=== PATIENT | male | born 1980 | race Caucasian/White ===

== ENCOUNTER 2022-10-03 08:46 | Emergency (ER) | payer OTHER, SELFPAY ==
[2022-10-03 08:46] VITALS: BP 206/115; PULSE 115; RESP 16; TEMP 36.4; O2SAT 94; BMI 44.4
[2022-10-03 08:52] VITALS: BMI 44.5
[2022-10-03] MEDS: predniSONE 20 MG Tablet 60 MG PO (10:04)
[2022-10-03] MEDS: Acyclovir 200 MG Capsule 400 MG PO (10:05)
[2022-10-03] MEDS: Lisinopril 20 MG Tablet PO (10:05)
[2022-10-03 10:07] VITALS: BP 149/87; PULSE 82; RESP 16; O2SAT 97
--- NOTE | 2022-10-03 16:30 | EX.ED.DYSGE1 ---
HPI History of Present Illness Chief Complaint: Neuro S/Sx Narrative Narrative: 42-year-old male presenting with facial droop x3 days. Patient denies other symptoms. He is not have any paresthesias or inability to move his arms or legs. No rashes. No headache. Patient states this is the right side of his face. He relates that he recently had something viral prior to starting the symptoms. PFSH [facility] Medical History HTN (hypertension) Home Medications acyclovir 400 mg tablet 1 tab PO 5X/DAY #35 tabs 10/03/22 [Rx Last Taken Unknown] lisinopril 20 mg tablet 20 mg PO DAILY #30 tabs 10/03/22 [Rx Last Taken Unknown] prednisone 10 mg tablet 60 mg PO DAILY 7 days #42 tabs 10/03/22 [Rx Last Taken Unknown] Allergy/AdvReac Type Severity Reaction Status Date / Time No Known Allergies Allergy Verified 10/03/22 08:48 Surgical History H/O vasectomy Social History Smoking Status: Current every day smoker tobacco type: cigarettes ROS ROS ED Constitutional Constitutional ED: Denies chills, fever(s) or sweats Eyes Eyes: Denies blurry vision or change in vision ENT ENT ED: Denies ear pain or sore throat Cardiovascular Cardiovascular: Denies chest pain, palpitations or racing heartbeat Respiratory/Chest Respiratory/Chest: Denies cough, dyspnea or sputum Gastrointestinal Gastrointestinal: Denies abdominal pain, constipation, diarrhea, nausea or vomiting Genitourinary Genitourinary ED: Denies dysuria, hematuria or urinary frequency Musculoskeletal Musculoskeletal: Denies arthralgias, myalgias or neck pain Integumentary Denies abscess, Abrasions or rash Neurologic Neurologic: Reports other Details: Right-sided facial Psychiatric Psychiatric: Denies anxiety, depression, suicidal ideation or suicidal thoughts Endocrine Endocrinology: Denies polydipsia or polyuria EXAM Physical Exam Const Vital Signs: 10/03/22 08:46 10/03/22 10:07 Temperature 97.6 F L Temperature Source Temporal Pulse Rate 115 H 82 Respiratory Rate 16 16 Blood Pressure 206/115 H 149/87 H Blood Pressure Mean 145 Pulse Ox 94 97 Oxygen Delivery Method Room Air Positive well nourished General Appearance ED: NAD; Negative for pallor HEENT Reports TM's clear and moist mucous membranes Tympanic Membrane ED: Yes TM's clear Eyes PERRL and EOMs intact bilaterally Neck no lymphadenopathy Chest Wall inspection of chest normal and palpation of chest normal Resp normal respiratory effort and clear to auscultation bilaterally Auscultation: Negative for rales, rhonchi or wheezes Cardio regular rate and regular rhythm GI normal to inspection, nondistended, normoactive bowel sounds Neuro oriented x3 Neuro Narrative: Facial droop to the right side of the face without sparing of the forehead. Sensorium / Orientation: alert Motor Exam: strength 5/5 throughout Psych mental status grossly normal Skin no rashes or lesions noted General Skin Exam: Negative for jaundice or pallor MDM MDM MDM Narrative Medical decision making narrative: Patient presenting with facial droop on the right side of his face without sparing of the forehead. Was consistent with a Figueroa's palsy. Patient's HEENT exam is otherwise normal. No skin rashes. TMs are normal. I do not believe the patient needs any blood work or imaging. Patient also has a complaint today that his blood pressures been elevated recently. He does not have a primary care physician. He states that his systolic blood pressure has been in the 170s pretty consistently. His diastolic pressure has been around 90-100 consistently. He made a appointment to follow-up with a primary care physician but cannot be seen until later this month. I will start him on a low-dose lisinopril 20 mg p.o. daily. He is also treated for his Figueroa's palsy with acyclovir and prednisone. He is to follow-up with his PCP. Return precautions discussed. Impression: 1. Hypertension 2. Figueroa's palsy Lab Data Attestation: I reviewed the patient's lab results. Discharge Plan Triage Chief Complaint: Neuro S/Sx ED Provider: Gen Rayo Dx/Rx/DC Orders Instructions: ED Figueroa's Palsy, ED Hypertension New Begin Treatment Prescriptions: New acyclovir 400 mg tablet 1 tab PO 5X/DAY Qty: 35 0RF prednisone 10 mg tablet 60 mg PO DAILY 7 Days Qty: 42 0RF lisinopril 20 mg tablet 20 mg PO DAILY Qty: 30 0RF Primary Care Provider: Care Physician,No Primary Referrals: Torsten Tinsley DO [Med Staff - Radiographer Mammographer] - 3-5 Days Care Physician,No Primary [Primary Care Provider] - Disposition Disposition: Home, Self Care Discharge Date/Time: 10/03/22 10:07
== END 2022-10-03 10:07 | disposition home or self-care (01) ==
PROVIDERS: Emergency Provider Student in an Organized Health Care Education/Training Program; Visit Provider Student in an Organized Health Care Education/Training Program
DX: G51.0 Bell's palsy (principal); I10 Essential (primary) hypertension; F17.210 Nicotine dependence, cigarettes, uncomplicated
CPT/HCPCS: 99283

== ENCOUNTER → 2023-01-25 | Outpatient (CLI) | payer OTHER, SELFPAY ==
[2023-01-25 12:23] LABS: Absolute Lymphocyte Count 3.48 X10^3/uL (0.83-4.51); Absolute Neutrophil Count 7.5 X10^3/uL (2.0-7.7); Basophil# 0.09 X10^3/uL; Basophil% 0.8 % (0-1); Eosinophil# 0.01 X10^3/uL; Eosinophils% 0.1 % (0-5); Hematocrit 50.3 % (40-54); Hemoglobin 16.7 g/dL (13.0-16.5); Lymphocyte # 3.48 X10^3/ul (0.83-4.51); Lymphocyte % 29.4 % (19-41); Mean Corp Hgb Conc 33.2 g/dL (32-36); Mean Corpuscular Hgb 29.8 pg (27.0-32.0); Mean Corpuscular Volume 89.8 fL (80-94); Mean Platelet Vol. 9.7 fl (6.2-12.0); Monocyte# 0.71 X10^3/uL; NRBC Flagged by Analyzer 0 % (0-5); Neutrophil # 7.48 X10^3/uL (2.7-7.7); Neutrophil % 63.3 % (47-70); Platelet Count 312 K/mm3 (150-450); RBC Distribution Width CV 12.9 % (11.6-14.6); RBC Distribution Width SD 42.2 fl (35.1-43.9); White Blood Count 11.8 K/mm3 (4.4-11.0)
[2023-01-25 12:56] LABS: ALB/GLOB Ratio 0.9 RATIO (0.9-2.4); AST(SGOT) 19 U/L (15-37); Alanine Aminotransfer ALT/SGPT 37 U/L (16-61); Albumin, Serum 3.7 g/dL (3.2-5.0); Alkaline Phosphatase 83 U/L (45-117); Anion Gap 3 (5-15); BUN 13 mg/dL (7-18); BUN/Creat Ratio 13.8 RATIO (10-20); Calcium,Total 8.9 mg/dL (8.5-10.1); Chloride 105 mmol/L (98-107); Cholesterol 207 mg/dL (200); Creatinine, Serum 0.94 mg/dL (0.70-1.30); EST Glomerular Filtration Rate 92 mL/min (>60); Est Glom Filt Rate - Afr Amer 112 mL/min (>60); Globulin 4.1 g/dL (2.2-4.2); Glucose 102 mg/dL (74-106); High Density Lipoprotein 42 mg/dL; Potassium 4.2 mmol/L (3.5-5.1); Protein, Total 7.8 g/dL (6.4-8.2); Sodium Level 134 mmol/L (136-145); Thyroid Stim Hormone (TSH) 0.83 uIU/mL (0.358-3.74); Triglycerides 209 mg/dL; Very Low Density Lipoprotein 42 mg/dL (5-40)
[2023-01-25 13:09] LABS: Hemoglobin A1c 5.6 % (3.8-5.6)
== END | disposition home or self-care (01) ==
LOC: BFHLAB 08:40
PROVIDERS: PCP Family Medicine; Referring Provider Family Medicine; Visit Provider Family Medicine
DX: Z00.00 Encounter for general adult medical examination without abnormal findings (principal); I10 Essential (primary) hypertension
CPT/HCPCS: 36415; 80053; 80061; 83036; 84443; 85025

== ENCOUNTER 2025-01-10 12:17 | Emergency (ER) | payer OTHER, SELFPAY ==
[2025-01-10 12:18] VITALS: BP 199/93; PULSE 119; RESP 20; TEMP 36.7; O2SAT 97; BMI 43.7
--- NOTE | 2025-01-10 12:41 | EDS_ITS ---
HPI <HARRISON Bermudez - Last Filed: 01/10/25 15:26> History of Present Illness Chief Complaint: Abscess Narrative Narrative: 44-year-old male states he has had a golf ball sized mass on the left side of his neck for 10 years. It was mobile to touch and not painful so he never had it evaluated. Over the last week it has significantly increased in size and become painful. He messaged his primary care doctor and is in the process of being referred to Dr. Tsai. The area seems more swollen and painful since last night prompting him to come in. He denies fever, chills, nausea, vomiting, or difficulty swallowing or breathing. PFSH <HARRISON Bermudez - Last Filed: 01/10/25 15:26> PFSH Medical History HTN (hypertension) Home Medications ?Medication ?Instructions ?Recorded ?Last Taken ?Type acyclovir 400 mg tablet 1 tab PO 5X/DAY #35 tabs 12/21 Unknown Rx lisinopril 20 mg tablet 20 mg PO DAILY #30 tabs 12/21 Unknown Rx prednisone 10 mg tablet 60 mg (6 x 10 mg) PO DAILY 7 days 10/03/22 Unknown Rx #42 tabs Allergy/AdvReac Type Severity Reaction Status Date / Time No Known Allergies Allergy Verified 10/03/22 08:48 Surgical History H/O vasectomy Social History Smoking Status: Current every day smoker tobacco type: cigarettes ROS <HARRISON Bermudez - Last Filed: 01/10/25 15:26> ROS ED ROS Narrative Constitutional: Negative for fever, chills, malaise. GI: Negative for nausea, vomiting. Neuro: Negative for headache. Skin: Negative for rash. EXAM <HARRISON Bermudez - Last Filed: 01/10/25 15:26> Physical Exam Narrative Exam Narrative: CONST: Patient sitting in no acute distress. EYES: Normal inspection. NECK: Normal inspection. Lemon sized mass on the left neck that starts below the ear and extends anteriorly. No involvement of the mastoid. There is no overlying warmth or erythema or skin changes. Trachea is midline, no respiratory distress or stridor. Normal posterior oropharynx, sublingual space is soft. RESP: No respiratory distress, CTAB. CVS: Regular rate and rhythm, no murmur, no gallop. SKIN: Color normal, no rash, warm, dry, intact. EXTREMITIES: Normal appearance, no pedal edema. NEURO: Alert and answering questions appropriately. PSYCH: Normal affect. Const Vital Signs: 01/10/25 12:18 01/10/25 15:11 Temperature 98.1 F 98.2 F Temperature Source Oral Pulse Rate 119 H 98 Respiratory Rate 20 H 19 H Blood Pressure 199/93 H 165/82 H Blood Pressure Mean 128 109 Pulse Ox 97 98 Oxygen Delivery Method Room Air <Dr. Chente Moreno DO - Last Filed: 01/10/25 15:16> Physical Exam Const Vital Signs: 01/10/25 12:18 01/10/25 15:11 Temperature 98.1 F 98.2 F Temperature Source Oral Pulse Rate 119 H 98 Respiratory Rate 20 H 19 H Blood Pressure 199/93 H 165/82 H Blood Pressure Mean 128 109 Pulse Ox 97 98 Oxygen Delivery Method Room Air MDM <HARRISON Bermudez - Last Filed: 01/10/25 15:26> [facility] Narrative Medical decision making narrative: Differential includes but not limited to cyst, abscess, neoplasm 44-year-old male has a left anterior neck mass that has been present for 10 years but increased in size and became painful over the last week. He appears well and nontoxic. BP 199/93, HR 119, otherwise normal vital signs. Under the left ear extending towards the anterior neck is a lemonsized mass. It is slightly mobile. There are no signs of cellulitis or abscess. His trachea is midline and his airway is patent. Normal posterior oropharynx. No signs of Nilo's angina. WBC is 13.7, glucose 142, otherwise unremarkable labs. CT soft tissue neck shows a large left cystic lesion contiguous with the inferior aspect of the left parotid gland. Differential includes first branchial cleft cyst or benign lymphoepithelial lesion. There is no sign of an abscess or infection. The attending used bedside ultrasound and an 18-gauge needle to aspirate the cyst and removed about 30 cc of yellow cloudy fluid that was sent for culture. ENT was paged but did not return the call. Patient is stable for outpatient follow-up and was given referrals for ENT and plastic surgery. He was discharged in stable condition. Lab Data Attestation: I reviewed the patient's lab results. Labs: Laboratory Results - last 24 hr 01/10/25 12:55 WBC 13.7 H RBC 5.20 Hgb 16.0 Hct 46.2 MCV 88.8 MCH 30.8 MCHC 34.6 RDW Std Deviation 41.8 RDW Coeff of Lady 12.8 Plt Count 321 MPV 8.8 Immature Gran % (Auto) 0.400 Neut % (Auto) 70.9 H Lymph % (Auto) 20.8 [place] % (Auto) 7.5 Eos % (Auto) 0.0 Baso % (Auto) 0.4 Absolute Neuts (auto) 9.7 H Absolute Lymphs (auto) 2.86 Nucleated RBC % 0 Sodium 135 Potassium 4.1 Chloride 99 Carbon Dioxide 22.5 Anion Gap 13 BUN 13 Creatinine 1.12 Estim Creat Clear Calc 112.09 Est GFR (MDRD) Non-Af 82 BUN/Creatinine Ratio 11.4 Glucose 142 H Calcium 8.8 Radiography Diagnostic Testing: Clinical Impression(s) from Imaging Studies Soft Tissue Neck CT 01/10/25 13:14 IMPRESSION: Large left cystic lesion contiguous with the inferior aspect of the left parotid gland. Differential diagnoses include 1st branchial cleft cyst or benign lymphoepithelial lesion. Warthin's tumor is less likely. No evidence of abscess or infection. If clinically indicated, consider diagnostic fluid aspiration for further evaluation. Reading Location: [id number] <Dr. Chente Moreno, DO - Last Filed: 01/10/25 15:16> [facility] History & Record Review Discussion w/independent historian: Patient Lab Data Labs: Laboratory Results - last 24 hr 01/10/25 12:55 WBC 13.7 H RBC 5.20 Hgb 16.0 Hct 46.2 MCV 88.8 MCH 30.8 MCHC 34.6 RDW Std Deviation 41.8 RDW Coeff of Lady 12.8 Plt Count 321 MPV 8.8 Immature Gran % (Auto) 0.400 Neut % (Auto) 70.9 H Lymph % (Auto) 20.8 [place] % (Auto) 7.5 Eos % (Auto) 0.0 Baso % (Auto) 0.4 Absolute Neuts (auto) 9.7 H Absolute Lymphs (auto) 2.86 Nucleated RBC % 0 Sodium 135 Potassium 4.1 Chloride 99 Carbon Dioxide 22.5 Anion Gap 13 BUN 13 Creatinine 1.12 Estim Creat Clear Calc 112.09 Est GFR (MDRD) Non-Af 82 BUN/Creatinine Ratio 11.4 Glucose 142 H Calcium 8.8 Radiography Diagnostic Testing: Clinical Impression(s) from Imaging Studies Soft Tissue Neck CT 01/10/25 13:14 IMPRESSION: Large left cystic lesion contiguous with the inferior aspect of the left parotid gland. Differential diagnoses include 1st branchial cleft cyst or benign lymphoepithelial lesion. Warthin's tumor is less likely. No evidence of abscess or infection. If clinically indicated, consider diagnostic fluid aspiration for further evaluation. Reading Location: [facility] Treatment and Re-Evaluation :: I have personally performed a face to face assessment of the patient and have reviewed the SURAJ Note. I performed a substantive portion of the visit including all aspects of the following. My sidhu findings include: History is 44-year-old male has felt a degree of swelling near the angle of the left mandible for about a decade. He states that over the past week its become increasingly larger and is now painful for him to move his neck. Denies any fever he denies any ear pain no difficulty swallowing or breathing. Denies any redness. He denies dry mouth. He does not recall having this as a youth. Exam is there is a large 8 x 6 cm area of swelling angle of the left mandible down onto the neck. No overlying erythema. Mildly tender to palpation. Appears with a degree of fluctuance. Medical Decison Making CT of the neck with IV contrast was obtained. This was read grouchy and reviewed by myself. I used the ultrasound to identify an area outside of the kaiser that would be accessible for needle aspiration. 1% lidocaine was used to raise a wheal after I cleansed the skin with ChloraPrep. 40 cc of yellow cloudy fluid was obtained. Needle was withdrawn.. Band-Aid was applied. This will be sent for culture. Placed a page out for ENT to ensure that they could follow-up with the patient and whether or not they needed any additional studies on the fluid. At the time of this dictation had not yet heard back from them. It Does not appear erythematous or febrile I suspect this is more non infectious in nature. Discharge Plan Triage Chief Complaint: Abscess ED Midlevel Provider: Radha Moser ED Provider: Chente Moreno Dx/Rx/DC Orders Clinical Impression: Cyst of neck, Acute neck pain Prescriptions: No Action acyclovir 400 mg tablet 1 tab PO 5X/DAY Qty: 35 0RF prednisone 10 mg tablet 60 mg PO DAILY 7 Days Qty: 42 0RF lisinopril 20 mg tablet 20 mg PO DAILY Qty: 30 0RF Primary Care Provider: Torsten Tinsley Referrals: Vince Morton MD [Med Staff - Courtesy Staff] - Torsten Tinsley DO [Primary Care Provider] - Pernell Tsai MD [Med Staff - Active Staff] - Activity Restrictions/Additional Instructions: You have a large neck cyst. The exact cause is unknown. The fluid was sent for testing. On Sunday I recommend you call both the ENT and plastic surgery office for appointments for further evaluation. Print Language: Azeri Disposition Disposition: Home, Self Care Discharge Date/Time: 01/10/25 15:14
[2025-01-10] MEDS: Ketorolac 15 MG/ML Vial IV (13:04)
[2025-01-10 13:06] LABS: Absolute Lymphocyte Count 2.86 X10^3/uL (0.83-4.51); Absolute Neutrophil Count 9.7 X10^3/uL (2.0-7.7); Basophil# 0.05 X10^3/uL; Basophil% 0.4 % (0-1); Hematocrit 46.2 % (40-54); Lymphocyte # 2.86 X10^3/ul (0.83-4.51); Lymphocyte % 20.8 % (19-41); Mean Corp Hgb Conc 34.6 g/dL (32-36); Mean Corpuscular Hgb 30.8 pg (27.0-32.0); Mean Corpuscular Volume 88.8 fL (80-94); Mean Platelet Vol. 8.8 fl (6.2-12.0); Monocyte# 1.03 X10^3/uL; Monocyte% 7.5 % (0-10); NRBC Flagged by Analyzer 0 % (0-5); Neutrophil # 9.74 X10^3/uL (2.7-7.7); Neutrophil % 70.9 % (47-70); Platelet Count 321 K/mm3 (150-450); RBC Distribution Width CV 12.8 % (11.6-14.6); RBC Distribution Width SD 41.8 fl (35.1-43.9); White Blood Count 13.7 K/mm3 (4.4-11.0)
--- NOTE | 2025-01-10 13:14 | CT_ITS ---
PROCEDURE: SOFT TISSUE NECK WITH CONTRAST 01/10/2025 REASON FOR EXAM: 44-year-old male, left-sided mass/abscess times 10 years. Started getting painful last week. TECHNIQUE: CT of the soft tissues of the neck from the orbits to the upper mediastinum with intravenous contrast. CONTRAST: Isovue 370 VOLUME: 100 mL One or more dose reduction techniques were used (e.g., Automated exposure control, adjustment of the mA and/or kV according to patient size, use of iterative reconstruction technique). RADIATION DOSE SUMMARY: CTDlvol: 18 mGy DLP: 700 mGycm COMPARISON: None. FINDINGS: Airway: The central airways are patent. Salivary glands: Enlargement of the bilateral parotid glands. There is a large fluid collection contiguous with the inferior margin of the left parotid gland with mild layering hyperdensity. The fluid collection measures at least 7.2 x 5.4 x 6.0 cm (CC x TV x AP, coronal image 46 and sagittal image 84). Lymph nodes: Prominence of multiple bilateral cervical chain lymph nodes. Thyroid: Heterogeneous thyroid without discrete nodule. Vasculature: Carotid arteries and internal jugular veins are unremarkable. Orbits: The orbits are unremarkable. Paranasal sinuses and mastoids: The mastoids and visualized paranasal sinuses are well-aerated. Lung apices: Mild biapical pleuro-parenchymal scarring. Upper mediastinum: Visualized mediastinum is unremarkable. Bones: Mild cervical spondylosis. CT/Soft Tissue Neck WITH Contrast IMPRESSION: Large left cystic lesion contiguous with the inferior aspect of the left paroti d gland. Differential diagnoses include 1st branchial cleft cyst or benign lymphoepithelial lesion. Warthin's tumor is les s likely. No evidence of abscess or infection. If clinically indicated, consider diagnostic fluid aspiration for further evalu ation. Reading Location: [id number]
[2025-01-10 13:25] LABS: Anion Gap 13 (5-15); BUN 13 mg/dL (4-19); BUN/Creat Ratio 11.4 RATIO (10-20); Calcium,Total 8.8 mg/dL (7.6-11.0); Carbon Dioxide 22.5 mmol/L (21.0-32.0); Chloride 99 mmol/L (98-108); Creatinine, Serum 1.12 mg/dL (0.70-1.20); EST Glomerular Filtration Rate 82 (>60); Estimated Creatinine Clearance 112.09 ml/min (50-250); Glucose 142 mg/dL (70-99); Potassium 4.1 mmol/L (3.3-5.1); Sodium Level 135 mmol/L (133-145)
[2025-01-10] MEDS: Lidocaine 1% (20 ml mdv) 20 ML Vial 5 ML INFILT (13:59)
[2025-01-10 15:11] VITALS: BP 165/82; PULSE 98; RESP 19; TEMP 36.8; O2SAT 98
== END 2025-01-10 15:14 | disposition home or self-care (01) ==
PROVIDERS: Physician Assistant; Emergency Provider Emergency Medicine; PCP Family Medicine; Visit Provider Emergency Medicine
DX: L72.9 Follicular cyst of the skin and subcutaneous tissue, unspecified (principal); F17.210 Nicotine dependence, cigarettes, uncomplicated
CPT/HCPCS: 70491; 99283; Q9967; A4216

== ENCOUNTER → 2025-03-04 | Outpatient (CLI) | payer OTHER, SELFPAY ==
--- NOTE | 2025-03-03 07:30 | MASS_PTH ---
PATIENT: LUIS EDUARDO STEWART LOC: [facility] U#:[id number] AGE/SX: 44/M ROOM: RE03/04/[address]: Dr. Ryan Cottrell MD : 1980 BED: DIS: 03/04/2025 SPEC #: [id number] RECD: 03/04/25 15:05 STATUS: MARIO DRAGAN #: [id number] JHONY: 03/03/25 07:[address]: Ryan Cottrell DEPT: SURGICAL PATHOLOGY RECD BY: Lester Esposito ENTERED: 03/04/25 15:57 SP TYPE: Mass OTHR DR: Dr. Torsten Tinsley, DO Tissues: A - Neck, NOS B - Neck, NOS Procedures: Surgery Specimen Level IV HEADER OPERATION: Excision left neck mass PRE-OP DIAGNOSIS: Other branchial cleft malformations TISSUE SUBMITTED: A- Left neck mass, B- Left subjacent neck mass MICROSCOPIC DIAGNOSIS A. 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 * Benign lymph node x1. B. Left neck, subjacent neck mass, excision: * Mature adipose containing benign vascular and neural structures. * Benign reactive lymph node x1. MICROSCOPIC DESCRIPTION Slides are reviewed. GROSS DESCRIPTION A. Received in formalin in a container labeled with the patient's name, date of , and left neck mass is a 61.0 g, unoriented, cystic structure measuring 5.4 x 4.6 x 4.4 cm. The outer surface (inked green) is jordan-brown with adhesions and scattered cautery artifact. The cystic structure is sectioned to reveal an abundance of thin, cloudy brown fluid. The inner lining is cantu-jordan, smooth and trabeculated. There is an average wall thickness of 0.1 cm. No firm areas are identified. Electric Track Switch Maintainer sections are submitted as follows:A1. Roll of cyst wall (taken from central aspect)A2-3. Full-thickness sections (greater than one section per centimeter) B. Received in formalin in a container labeled with the patient's name, date of , and left subjacent neck mass is a 2.5 x 1.7 x 1.0 cm, 1.9 g unoriented and rubbery nodule. The outer surface (inked black) is cantu-yellow, lobulated, and thinly encapsulated with areas of cautery artifact. Serial sections reveal cantu-yellow, uniform surfaces with a scant amount of scattered hemorrhage. No distinct necrosis is identified. Electric Track Switch Maintainer sections are submitted in B1 (at least one section per cm in greatest dimension of specimen). [facility] 03-04-2025 CPT:52343s9
== END | disposition home or self-care (01) ==
LOC: LABSPEC 15:08
PROVIDERS: PCP Family Medicine; Referring Provider Otolaryngology; Visit Provider Otolaryngology
DX: Q18.2 Other branchial cleft malformations (principal)
CPT/HCPCS: 88304; 88305